=== PATIENT | female | born 1950 ===

== ENCOUNTER 2016-10-31 10:23 | Day surgery (SDC) | payer MEDICARE, MEDICAID ==
[2016-10-31 10:53] VITALS: RESP 18
[2016-10-31 10:54] VITALS: BMI 31.6
[2016-10-31] MEDS ORDERED: MethylPREDNISolone Depo 40 mg/ml Inj ONE (11:29)
[2016-10-31] MEDS ORDERED: Iohexol 300 10 ML ONE (11:30)
[2016-10-31] MEDS ORDERED: Bupivacaine HCl 0.5% PF (10 ml) Inj ONE ×2 (11:30→11:44)
[2016-10-31] MEDS ORDERED: Lidocaine 1% Inj (20ml) ONE ×2 (11:30→11:56)
[2016-10-31] MEDS ORDERED: Midazolam 2 MG/2 ML VIAL ONE ×2 (11:39→11:48)
[2016-10-31] MEDS ORDERED: Lactated Ringer's 1,000 ML IV ONE (11:45)
[2016-10-31] MEDS ORDERED: Esmolol 100 mg/10ml Inj IV ONE (12:10)
[2016-10-31] MEDS ORDERED: Lactated Ringer's 1,000 ML IV SCH (12:18)
[2016-10-31 13:08] VITALS: O2SAT 98
[2016-10-31 14:05] VITALS: BP 132/76; PULSE 76; TEMP 97.2
--- NOTE | 2016-10-31 14:06 | OP ---
PROCEDURE DATE: 10/31/2016 PREOPERATIVE DIAGNOSIS: Sacroiliitis. POSTOPERATIVE DIAGNOSIS: Sacroiliitis. PROCEDURE: Bilateral sacroiliac joint steroid injection and also right sacral nerve radiofrequency x 3. ANESTHESIOLOGIST: Dr. Gómez. SURGEON: Dr. Balbuena. ANESTHESIA TYPE: Monitored anesthesia care. COMPLICATIONS: None. SPECIMEN: None. PROCEDURE: After re-discussion of the procedure with the patient including its risks, benefits, alte rnatives, outcome data, possibility of no effect or increased pain, the patient consented to the proc edure. She denies any recent infections, bleeding tendencies, or being on anticoagulants. Decision was then made to proceed to the OR. The patient had stopped Plavix exactly 1 week prior to today. The patient was placed on the fluoroscopy table in a prone position with 2 pillows underneath her abd omen. The patient was then grounded. The sacroiliac joints were then visualized on the anterior-pos terior view. Her lower back was then prepped and draped in a usual sterile fashion and sterile techn ique was adhered to during the entire procedure. The skin overlying the inferior pole of both sacroi liac joints was infiltrated with 1% lidocaine using a 25 gauge needle. Subsequently, a 22 gauge 3-1/ 2 inch spinal needle was then incrementally advanced under fluoroscopic guidance until tip of the nee dle walked into the sacroiliac joints. After satisfactory positioning of both needles, approximately 1 mL of Isovue contrast was injected showing appropriate spread of the bilateral joint lines. At th is point, each needle was injected with 2 mL of 0.5% Marcaine and Depo-Medrol. Then, the skin overlying the medial border of the right sacroiliac joint was then infiltrated with 1% lidocaine using a 25-gauge needle. Then three 22 gauge 3-1/2 inch Stimuplex needle was then inserte d at approximately 5 mm intervals from the inferior pole on the medial side of the medial sacroiliac joint line. Using a tunnel view on the fluoroscopy, all 3 needles were then inserted until bony cont act with desired location was made. Then each nerve was anesthetized with 1% lidocaine. Radiofreque ncy was then carried out at 80 degrees Celsius for approximately 1-1/2 minutes. At the end of the ra diofrequency procedure, each nerve was treated with a combination of 0.5% Marcaine and Depo-Medrol. At the end of the procedure, the needle was removed and patient's back was clean and dry and Band-Aid s were applied. The patient was then transferred to recovery area in good condition without any signs of TARIFF PUBLISHING AGENT toxicity or any neurological deficits. She will have a followup in office in approximately 2-4 weeks. En-Joshua Balbuena MD cc: [id number] TT: 10/31/2016 14:05:39 mn
--- NOTE | 2016-10-31 15:00 | RAD ---
PROCEDURE: Sacral Epidural Injection HISTORY: EPIDURAL TECHNIQUE: Fluoroscopic guidance was provided for epidural injection for pain management purposes. FINDINGS: IMPRESSION: Fluoroscopic guidance provided for epidural injection. Please refer procedure.
== END 2016-10-31 14:06 | disposition home or self-care (01) ==
LOC: H.OPSURG 10:23
PROVIDERS: ATTEND Anesthesiology
DX: M96.1 Postlaminectomy syndrome, not elsewhere classified (principal); I25.10 Atherosclerotic heart disease of native coronary artery without angina pectoris; E11.9 Type 2 diabetes mellitus without complications; I10 Essential (primary) hypertension; G40.909 Epilepsy, unspecified, not intractable, without status epilepticus; Z86.73 Personal history of transient ischemic attack (TIA), and cerebral infarction without residual deficits
CPT/HCPCS: 27096; 64635; 64636; 82948; J1030; J2250; J3010; J7120; Q9967

== ENCOUNTER 2016-12-26 09:41 | Day surgery (SDC) | payer MEDICARE, MEDICAID ==
[2016-12-26 10:11] VITALS: BMI 31.1
[2016-12-26] MEDS ORDERED: Lactated Ringer's 1,000 ML IV ONE (10:38)
[2016-12-26] MEDS ORDERED: Bupivacaine 0.5% 50 ML IJ ONE (10:45)
[2016-12-26] MEDS ORDERED: methylPREDNISolone Depo 80 mg/ml Inj IM ONE (10:46)
[2016-12-26] MEDS ORDERED: Lidocaine 1% Inj (20ml) IJ ONE (10:46)
[2016-12-26] MEDS ORDERED: Lactated Ringer's 1,000 ML IV SCH (11:01)
[2016-12-26] MEDS ORDERED: HYDROmorphone 0.5 mg/0.5 ml ISec IVP PRN (11:01)
[2016-12-26 11:18] VITALS: RESP 18
[2016-12-26 12:32] VITALS: BP 127/71; PULSE 81; TEMP 97.6; O2SAT 97
--- NOTE | 2016-12-26 13:30 | RAD ---
PROCEDURE: HISTORY: Study for pain management. Please refer to physician's notes performing the exam COMPARISON: None TECHNIQUE: Total fluoroscopic time utilized during the procedure: 33.8 sec 16.11 mGy = cumulative dose FINDINGS: Submitted images from the current procedure: 2 IMPRESSION: Less than 1 hour fluoroscopic time utilized during performance of the procedure
--- NOTE | 2016-12-26 16:41 | OP ---
PROCEDURE DATE: 12/26/2016 PREOPERATIVE DIAGNOSIS: Lumbar facet syndrome. POSTOPERATIVE DIAGNOSIS: Lumbar facet syndrome. PROCEDURE: Bilateral L3, L4, and L5 medial branch nerve block. ANESTHESIOLOGIST: Yariel Bejarano MD SURGEON: Luiz Balbuena MD ANESTHESIA TYPE: Monitored anesthesia care. COMPLICATIONS: None. SPECIMEN: None. PROCEDURE: After re-discussion of the procedure with the patient, including its risks, benefits, alt ernatives, outcome data, possibility of no effect, or increased pain, the patient consented to the pr ocedure. She denies any recent infections, bleeding tendencies, or being on anticoagulants. Decisio n was then made to proceed to the OR. The patient last had Plavix on 12/18, and has not taken that s aylin that time. This decision was cleared by her neurologist and roofing layer. The patient was then transferred into the OR onto the fluoroscopy table in a prone position with 2 pi llows underneath her abdomen. The back was prepped and draped in a usual sterile fashion and sterile technique was adhered to during the entire procedure. The L3, L4, and L5 medial branch nerves are l ocated at the intersection of the superior articular process and the transverse process of the L4 and L5 pedicles; also, the sacral ala. The procedure was first performed on the right side by turning t he fluoroscopy towards the right at approximately 15 degrees. The skin overlying the 3 above target areas was infiltrated with 1% lidocaine using a 25-gauge needle. Subsequently, a 22-gauge 3-1/2 inch spinal needle was then incrementally advanced under fluoroscopic guidance until the tip of needle ma de bony contact with all 3 target areas. After satisfactory positioning of all 3 needles, approximat clinton 3 mL of a 0.5% Marcaine and Depo-Medrol mixture was injected. Then, the needle was then removed and the same exact procedure was performed on the contralateral left side using the same medications and techniques. At the end of the case, the patient's back was cleaned and dried and Band-Aids were applied. The patient was then transferred to recovery area in good condition without any signs of VP [employer] MARKETING toxicity or any neurological deficits. She will follow up in office in approximately 2-4 weeks. She may res ume Plavix tomorrow. En-Joshua Balbuena MD cc: [id number] TT: 12/26/2016 16:40:42 dn
== END 2016-12-26 13:00 | disposition home or self-care (01) ==
LOC: H.OPSURG 09:41
PROVIDERS: ATTEND Anesthesiology
DX: M96.1 Postlaminectomy syndrome, not elsewhere classified (principal); E11.9 Type 2 diabetes mellitus without complications; I10 Essential (primary) hypertension
CPT/HCPCS: 64520; 82948; J1040; J7120

== ENCOUNTER 2017-02-27 06:04 | Day surgery (SDC) | payer MEDICARE, MEDICAID ==
[2017-02-27 06:20] VITALS: BMI 34.3
[2017-02-27] MEDS ORDERED: Lactated Ringer's 1,000 ML IV ONE (06:49)
[2017-02-27] MEDS ORDERED: Propofol 10 mg/ml Inj (20 ML) ONE (07:17)
[2017-02-27] MEDS ORDERED: Midazolam 2 MG/2 ML VIAL ONE ×3 (07:17→07:59)
[2017-02-27] MEDS ORDERED: Iohexol 300 10 ML ONE (07:25)
[2017-02-27] MEDS ORDERED: MethylPREDNISolone Depo 40 mg/ml Inj ONE (07:25)
[2017-02-27] MEDS ORDERED: Bupivacaine HCl 0.5% PF (10 ml) Inj ONE (07:25)
[2017-02-27] MEDS ORDERED: Lidocaine 1% Inj (20ml) ONE (07:26)
[2017-02-27] MEDS ORDERED: oxyCODONE 10 mg Immediate Release Tab PO PRN (08:27)
[2017-02-27 09:11] VITALS: RESP 20
[2017-02-27 09:23] VITALS: BP 120/50; PULSE 85; TEMP 98.2; O2SAT 98
--- NOTE | 2017-02-27 20:37 | OP ---
PROCEDURE DATE: 02/27/2017 PREOPERATIVE DIAGNOSIS: Failed back syndrome. POSTOPERATIVE DIAGNOSIS: Failed back syndrome. PROCEDURE: Bilateral L3-L4 medial branch nerve radiofrequency. ANESTHESIOLOGIST: Dr. Schafer. SURGEON: Dr. Balbuena. ANESTHESIA: Monitored anesthesia care. COMPLICATIONS: None. SPECIMEN: None. PROCEDURE: After we had discussion of the procedure with the patient including its risks, benefits, alternative, outcome data, possibility of no effect or increased pain, the patient consented to the procedure. She denies any recent infections, bleeding tendencies or being on anticoagulants. Decision was then made to proceed to the OR. The patient was placed on the fluoroscopy table in a prone position with 2 pillows underneath her abdomen. The back was prepped and draped in the usual sterile fashion and sterile technique was adhered during the entire procedure. The L3 and L4 vertebrae levels were first identified in the anterior and posterior view. The medial branch nerves are located at the bilateral pedicles at the junction of the superior articular process and the transverse process. The needles were first placed on the right side by turning the fluoroscopy towards the right approximately 15 degrees. The skin overlying the targeted areas was infiltrated with 1% lidocaine using 25 gauge needle. Subsequently, a 22-gauge 3-1/2 inch needle was then incrementally advanced under fluoroscopic guidance until the tip of the needle made bony contact with both pedicles. Then, the procedure was repeated on the contralateral left side at the same levels. After appropriate placement of all 4 needles, sensory and motor testing was carried out to satisfactory results. The patient reported corresponding pain in the lower back without any muscle twitching in the legs during the stimulation. Then each layer was anesthetized with 1% lidocaine using 25 gauge needle. Subsequently, radiofrequency was carried out at 80 degrees Celsius for approximately 90 seconds. Then each layer was treated with a combination of 0.5% Marcaine and Depo-Medrol. At the end of the procedure, the needles were removed and the patient's back was cleaned and dried and bandage was applied. The patient was then transferred to recovery area in good condition without any signs of GAS APPLIANCE MECHANIC toxicity or any neurological deficit. She will have a followup in our office in approximately 2 to 4 weeks. En-Joshua Balbuena MD [facility] # [id number]
--- NOTE | 2017-02-28 11:29 | RAD ---
PROCEDURE: Intraoperative Fluoroscopy. HISTORY: PAIN FINDINGS: Fluoroscopic assistance was provided. Approximately at 20.7 seconds fluoroscopy time utilized during this procedure. Please refer to the
== END 2017-02-27 10:11 | disposition home or self-care (01) ==
LOC: H.OPSURG 06:04
PROVIDERS: ATTEND Anesthesiology
DX: M43.06 Spondylolysis, lumbar region (principal); E11.9 Type 2 diabetes mellitus without complications; I10 Essential (primary) hypertension; E66.09 Other obesity due to excess calories; F03.90 Unspecified dementia, unspecified severity, without behavioral disturbance, psychotic disturbance, mood disturbance, and anxiety
CPT/HCPCS: 64635; 82948; J1030; J2001; J2250; J2704; J3010; J7120

== ENCOUNTER 2017-05-24 09:44 | Day surgery (SDC) | payer MEDICARE, MEDICAID ==
[2017-05-24 10:07] VITALS: RESP 20
[2017-05-24] MEDS ORDERED: Bupivacaine HCl 0.5% PF (30 ml) Inj ONE (10:17)
[2017-05-24] MEDS ORDERED: MethylPREDNISolone Depo 40 mg/ml Inj ONE (10:17)
[2017-05-24] MEDS ORDERED: Lidocaine 1% Inj (20ml) ONE (10:17)
[2017-05-24] MEDS ORDERED: Midazolam 2 MG/2 ML VIAL ONE (10:31)
[2017-05-24] MEDS ORDERED: Lactated Ringer's 1,000 ML IV ONE (10:35)
[2017-05-24] MEDS ORDERED: Bupivacaine 0.5% Inj(30mL) IJ ONE (10:46)
[2017-05-24] MEDS ORDERED: HYDROmorphone 0.5 mg/0.5 ml ISec IVP PRN (11:21)
[2017-05-24] MEDS ORDERED: Lactated Ringer's 1,000 ML IV SCH (11:30)
[2017-05-24 12:11] VITALS: BP 135/65; PULSE 82; TEMP 98.1
[2017-05-24 12:12] VITALS: O2SAT 99
--- NOTE | 2017-05-25 02:10 | OP ---
PROCEDURE DATE: 05/24/2017 PREOPERATIVE DIAGNOSIS: Bilateral sacroiliitis. POSTOPERATIVE DIAGNOSIS: Bilateral sacroiliitis. PROCEDURE: Left sacroiliac joint nerve radiofrequency and also right sacroiliac joint steroid injection. ANESTHESIOLOGIST: Spenser Schultz MD SURGEON: Luiz Balbuena MD TYPE OF ANESTHESIA: Monitored anesthesia care. COMPLICATIONS: None. SPECIMEN: None. DESCRIPTION OF PROCEDURE: As follows: After we had discussion of the procedure with the patient including its risks, benefits, alternatives, outcome data, possibility of no effect or increased pain, patient consented to the procedure. She denies any recent infection, bleeding tendencies, or being on anticoagulants. A decision was then made to proceed to the OR. She has stopped the Plavix approximately 1 week ago. The patient was placed on a fluoroscopy table in a prone position with 2 pillows underneath her abdomen. The back was prepped and draped in the usual sterile fashion, and sterile technique was adhered to during the entire procedure. The sacroiliac joint on left was first visualized in the anterior-posterior view. The target are an imaginary line along the medial border of the posterior opening to the left sacroiliac joint. The skin overlying this areas was infiltrated with 1% lidocaine using a 25-gauge needle. Subsequently, 6 Stimuplex needle was then placed along this imaginary line, starting from the inferior pole up to the top of the sacroiliac joint. The needles were placed at approximately 1 cm apart. Then after a negative motor stimulation, each nerve was anesthetized with 1% lidocaine. Then, bipolar radiofrequency was carried out between each of the 2 needles at 90 degree Celsius for approximately 2 minutes. This was repeated at each pair of needles from #1 to #6. At the end of the radiofrequency procedure, each nerve was treated with a combination of 0.5% Marcaine and Depo-Medrol. Then the right sacroiliac joint was visualized in the anterior-posterior view. A slight oblique angle towards the left at approximately 15 degrees was used to maximize the visualization to the posterior opening of the right sacroiliac joint. The skin overlying the inferior pole of this area was infiltrated with 1% lidocaine using 25-gauge needle. Subsequently, a 22-gauge 3-1/2 inch spinal needle was then incrementally advanced under fluoroscopic guidance until the tip of needle walked into the joint capsule. After satisfactory positioning of the needle, approximately 3 mL of 0.5% Marcaine and Depo-Medrol mixture was injected. At the end of the case, the patient's back was cleaned and dry bandages were applied. The patient was then transferred to the recovery area in good condition without any signs of BILLING DEPARTMENT SUPERVISOR toxicity or any neurovascular deficit. She will have a followup in the office in approximately 2 to 4 weeks. En-Joshua Balbuena MD
== END 2017-05-24 12:56 | disposition home or self-care (01) ==
LOC: H.OPSURG 09:44
PROVIDERS: ATTEND Anesthesiology
DX: M46.1 Sacroiliitis, not elsewhere classified (principal)
CPT/HCPCS: 27096; 82948; J1030; J2250; J3010; J7120

== ENCOUNTER 2017-09-18 09:36 | Day surgery (SDC) | payer MEDICARE, MEDICAID ==
[2017-09-18 10:16] VITALS: BMI 36.0
[2017-09-18] MEDS ORDERED: Midazolam 2 MG/2 ML VIAL ONE (10:16)
[2017-09-18] MEDS ORDERED: Bupivacaine HCl 0.5% PF (10 ml) Inj ONE (10:36)
[2017-09-18] MEDS ORDERED: methylPREDNISolone Depo 80 mg/ml Inj ONE (10:36)
[2017-09-18] MEDS ORDERED: Lidocaine 1% Inj (20ml) ONE (10:36)
[2017-09-18] MEDS ORDERED: Lactated Ringer's 500 ML IV ONE (10:45)
[2017-09-18 12:09] VITALS: PULSE 80
[2017-09-18 12:30] VITALS: BP 137/62; RESP 18; TEMP 97.4
[2017-09-18 12:32] VITALS: O2SAT 98
--- NOTE | 2017-09-18 16:24 | OP ---
PROCEDURE DATE: 09/18/2017 PREOPERATIVE DIAGNOSIS: Failed back syndrome. POSTOPERATIVE DIAGNOSIS: Failed back syndrome. PROCEDURE: Bilateral L3 and L4 medial branch nerve radiofrequency. SURGEON: Luiz Balbuena MD TYPE OF ANESTHESIA: Monitored anesthesia care. ANESTHESIOLOGIST: . COMPLICATIONS: None. SPECIMEN: None. DESCRIPTION OF PROCEDURE: As follows. After we had discussion of the procedure with the patient including its risks, benefits, alternative, outcome data, possibility of no effect or increased pain, the patient consented to the procedure. She denies any recent infection, bleeding tendencies or being on anticoagulants, a decision was then made to proceed to the OR. The patient is routinely on Plavix, but that was stopped approximately 1 week ago. The patient was transferring to the OR and to the fluoroscopy table in a prone position. She was grounded for the purpose of radiofrequency. The patient had a previous surgery of L5 to S1 fusion, the procedure was done at the level of the L3 and L4 vertebrae. The procedure was first performed on the right side by turning the fluoroscopy towards the right at approximately 15 degrees. The skin overlying the right L3 and L4 pedicles was infiltrated with 1% lidocaine using a 25 gauge needle. Subsequently, a 22-gauge 3-1/2 inch Stimuplex needle was incrementally advanced under fluoroscopic guidance until tip of needle made bony contact with the targeted areas. After satisfactory positioning of both needles, sensory and motor testing was carried out to satisfactory results. Then each nerve was anesthetized with 1% lidocaine. Subsequently, a radiofrequency was carried out at 80 degree Celsius for approximately 1-1/2 minutes. At the end of the procedure, each nerve was treated with a combination of 0.5% Marcaine and Depo-Medrol. At the end of the case, the needle was removed and the same exact procedure was performed on the contralateral left side using the same medications and techniques. At the end of the case, the patient's back was cleaned and dried, and bandages were applied. The patient was then transferred to recovery area in good condition without any signs of FAN BALANCER toxicity or any neurological deficit. She will be following in our office in approximately 2 to 4 weeks. Luiz Balbuena MD [facility] # [id number]
--- NOTE | 2017-09-19 09:17 | RAD ---
PROCEDURE: Intraoperative Fluoroscopy. HISTORY: EPIDURAL FINDINGS: Fluoroscopic assistance was provided for lumbar epidural procedure. Please refer to the operative report from SEKOU Story. 61.5 seconds of fluoroscopy time was utilized with a cumulative radiation dose of 25.94 mGy.
== END 2017-09-18 13:00 | disposition home or self-care (01) ==
LOC: H.OPSURG 09:36
PROVIDERS: ATTEND Anesthesiology
DX: M96.1 Postlaminectomy syndrome, not elsewhere classified (principal); M54.5 Low back pain; E11.9 Type 2 diabetes mellitus without complications
CPT/HCPCS: 64635; 64636; 82948; J1040; J2250; J3010; J7120

== ENCOUNTER 2017-10-15 13:59 | Observation (INO) | payer MEDICARE, MEDICAID ==
[2017-10-15 13:59] VITALS: BMI 36.0
[2017-10-15 15:41] LABS: BASO % 0.2 % (0.0-2.0); EOS # 0.1 K/uL (0.0-0.7); EOS % 0.6 % (0.0-4.0); HEMOGLOBIN 9.7 g/dL (12.0-16.0); LYMPH # 3.8 K/uL (1.0-4.3); LYMPH % 32.4 % (20.0-40.0); MEAN CORPUSCULAR HEMOGLOBIN 30.5 pg (27.0-31.0); MEAN CORPUSCULAR HGB CONC 32.4 g/dL (33.0-37.0); MEAN PLATELET VOLUME 10.9 fl (7.2-11.7); MONO # 0.7 K/uL (0.0-0.8); MONO % 6.3 % (0.0-10.0); NEUT # 7.1 K/uL (1.8-7.0); NEUT % 60.5 % (50.0-75.0); NRBC % 0.1 % (0.0-0.0); RBC 3.18 Mil/uL (3.80-5.20); RED CELL DISTRIBUTION WIDTH 15.5 % (11.5-14.5); WHITE BLOOD COUNT 11.7 K/uL (4.8-10.8)
[2017-10-15 15:59] LABS: MEAN CELL VOLUME 94.1 fl (81.0-99.0)
--- NOTE | 2017-10-15 16:10 | RAD ---
PROCEDURE: CHEST RADIOGRAPH, 1 VIEW HISTORY: chest pain COMPARISON: Frontal chest 09/13/2016. FINDINGS: LUNGS: No acute pulmonary disease identified bilaterally. PLEURA: No pneumothorax or pleural fluid seen. CARDIOVASCULAR: Normal. OSSEOUS STRUCTURES: No significant abnormalities. VISUALIZED UPPER ABDOMEN: Normal. OTHER FINDINGS: None. IMPRESSION: No interval acute cardiopulmonary disease appreciated.
[2017-10-15 16:19] LABS: CALCIUM 9.6 mg/dL (8.4-10.2); GFR AFRICAN-AMERICAN > 60; GFR NON-AFRICAN AMERICAN > 60
[2017-10-15 16:21] LABS: BLOOD UREA NITROGEN 21 mg/dl (7-17)
--- NOTE | 2017-10-15 16:22 | ED PDOC ---
HPI: Chest Pain Time Seen by Provider: 10/15/17 14:24 Chief Complaint (Nursing): Chest Pain Chief Complaint (Provider): Chest Pain History Per: Patient History/Exam Limitations: no limitations Onset/Duration Of Symptoms: Days (x 1) Current Symptoms Are (Timing): Still Present Associated Symptoms: Dyspnea Additional Complaint(s): 66 year old female with a past medical history of hypertension, dementia, chronic shoulder pain, arthritis, and coronary artery disease, who presents to the ED with complaints of left sided chest pain associated with difficulty breathing and left shoulder shoulder pain, onset one day ago. Denies fever, cough, leg swelling, dizziness, and palpitations. PMD: Pedro Hollins Past Medical History Reviewed: Historical Data, Nursing Documentation, Vital Signs Vital Signs: Last Vital Signs Temp 98.1 F 10/16/17 16:37 Pulse 79 10/16/17 16:37 Resp 20 10/16/17 16:37 BP 100/66 10/16/17 16:37 Pulse Ox 99 10/16/17 20:10 - Medical History PMH: Arthritis, Back Problems, CAD, CVA, Dementia, Diabetes, HTN, Hypercholesterolemia, Osteoporosis, Seizures (LAST ATTACK-20 YEARS AGO), TIA Denies: Alzheimer's Disease, Atrial Fibrillation, Cardia Arrhythmia, CHF, Colonic Polyps, Crohn's Disease, Diverticulitis, Fibromyalgia, Fractures, Gastritis, Gall Bladder Disease, HIV, Hyperthyroidism, Hypothyroidism, Migraine , Mitral Valve Prolapse, Multiple Sclerosis, Pancreatitis, Parkinson's Disease, Peripheral Edema, Chronic Kidney Disease, Rheumatoid Arthritis - Surgical History Surgical History: Back Surgery - Family History Family History: States: Unknown Family Hx - Home Medications Home Medications: Ambulatory Orders Medication Instructions Recorded Atorvastatin [Lipitor] 40 mg PO HS 09/18/17 Clopidogrel [Plavix] 75 mg PO DAILY 09/18/17 Diclofenac Sodium [Voltaren] 1 appl TOP Q12 PRN 09/18/17 Lidocaine [Lidocare] 1 patch TD DAILY 09/18/17 Liraglutide [Victoza 2-Eliud] 1.8 mg SC HS 09/18/17 Memantine HCl [Namenda Xr] 28 mg PO DAILY 09/18/17 Pioglitazone HCl/Metformin HCl 1 tab PO BID 09/18/17 [Pioglitazone-Metformin 15-850] Pregabalin [Lyrica] 100 mg PO Q12 09/18/17 Rivastigmine [Exelon] 3 mg PO Q12 09/18/17 Travoprost [Travatan Z 2.5 ml] 1 drop BOTHEYES HS 09/18/17 Valsartan/Hydrochlorothiazide 1 tab PO DAILY 09/18/17 [Diovan Hct 320-25 mg Tablet] amLODIPine [Norvasc] 5 mg PO DAILY 09/18/17 carBAMazepine [TEGretol-XR] 100 mg PO DAILY 09/18/17 Temazepam [Restoril] 30 mg PO HS 10/15/17 oxyCODONE [oxyCODONE Immediate 30 mg PO Q6 PRN 10/15/17 Release Tab] - Allergies Allergies/Adverse Reactions: Allergies Allergy/AdvReac Type Severity Reaction Status Date / Time aspirin AdvReac NAUSEA Verified 09/18/17 10:15 paper tape Allergy RASH Uncoded 09/18/17 10:15 RAJESH Risk Score for UA/NSTEMI - RAJESH Risk Score Age > 64: YES 3 or more CAD Risk Factors: YES Known CAD (Stenosis greater than 50%): YES Aspirin use in past 7 days: NO Severe Angina: NO EKG ST changes greater than 0.5mm: NO Positive Cardiac Marker: NO RAJESH Score: 3 Risk %: 13% Review of Systems ROS Statement: Except As Marked, All Systems Reviewed And Found Negative Cardiovascular: Positive for: Chest Pain (left sidded ) Respiratory: Positive for: Other (Dyspnea) Musculoskeletal: Positive for: Shoulder Pain (let shoulder) Physical Exam - Reviewed Nursing Documentation Reviewed: Yes Vital Signs Reviewed: Yes - Physical Exam Appears: Positive for: Non-toxic, No Acute Distress Head Exam: Positive for: ATRAUMATIC, NORMAL INSPECTION, NORMOCEPHALIC Skin: Positive for: Normal Color, Warm, Dry Eye Exam: Positive for: EOMI, Normal appearance, PERRL Neck: Positive for: Normal, Painless ROM, Supple Cardiovascular/Chest: Positive for: Regular Rate, Rhythm. Negative for: Murmur Respiratory: Positive for: Normal Breath Sounds. Negative for: Respiratory Distress Gastrointestinal/Abdominal: Positive for: Normal Exam, Soft. Negative for: Tenderness Back: Positive for: Normal Inspection. Negative for: L CVA Tenderness, R CVA Tenderness, Vertebral Tenderness Extremity: Positive for: Normal ROM. Negative for: Pedal Edema, Deformity Neurologic/Psych: Positive for: Alert, Oriented (x3) - Laboratory Results Result Diagrams: 10/15/17 15:34 10/15/17 15:34 - ECG ECG: Positive for: Interpreted By Me, Viewed By Me ECG Rhythm: Positive for: Normal QRS, Normal ST Segment O2 Sat by Pulse Oximetry: 99 (RA) Pulse Ox Interpretation: Normal Medical Decision Making Medical Decision Making: Time: 1509 Initial Impression: Chest Pain and Shoulder Pain Differentials include ACS, musculoskeletal pain Plan: -- EKG -- Chest XR -- Farm Operations Technical Director Time:1534 Plan: -- B-Type Natriuretic -- BMP -- Troponin -- CBC Time: 1608 Chest X-Ray FINDINGS: LUNGS: No acute pulmonary disease identified bilaterally. PLEURA: No pneumothorax or pleural fluid seen. CARDIOVASCULAR: Normal. OSSEOUS STRUCTURES: No significant abnormalities. VISUALIZED UPPER ABDOMEN: Normal. OTHER FINDINGS: None. IMPRESSION: No interval acute cardiopulmonary disease appreciated. Time: [address] Fernandez. Patient will be admitted to observation and diagnosed with chest pain. Patient has an allergy to Asprin and will not be given Asprin. Scribe Attestation: Documented by Omar Qiu, acting as a scribe for Dr. Abraham Peres MD. Provider Scribe Attestation: All medical record entries made by the Scribe were at my direction and personally dictated by me. I have reviewed the chart and agree that the record accurately reflects my personal performance of the history, physical exam, medical decision making, and the department course for this patient. I have also personally directed, reviewed, and agree with the discharge instructions and disposition. Disposition - Clinical Impression Clinical Impression: Chest pain - Patient ED Disposition Is Patient to be Admitted: Yes Discussed With DrViktoria: Enoc Fernandez Doctor Will See Patient In The: Hospital Counseled Patient/Family Regarding: Studies Performed, Diagnosis - Disposition Disposition Time: 16:55 Condition: FAIR - Pt Status Changed To: Hospital Disposition Of: Observation - POA Present On Arrival: None
[2017-10-15 16:27] LABS: B-TYPE NATRIURETIC PEPTIDE 96.3 pg/ml (0-900)
[2017-10-15] MEDS ORDERED: Patient's Own Med (Diclofenac Sodium [Voltaren] 1 APPL) TOP PRN (22:28)
[2017-10-15] MEDS ORDERED: LIDOCAINE TD SCH (22:30)
[2017-10-15] MEDS ORDERED: PIOGLITAZONE HCL PO SCH (22:30)
[2017-10-15] MEDS ORDERED: Patient's Own Med (Travoprost [Travatan Z] 1 DROP) BOTHEYES SCH (22:30)
[2017-10-15] MEDS ORDERED: METFORMIN HCL PO SCH (22:30)
[2017-10-15] MEDS ORDERED: [UNRECOGNIZED DRUG - OTHER] PO SCH (22:30)
[2017-10-15] MEDS: Lidocaine 5% Patch TD SCH (23:51)
[2017-10-16] MEDS: Enoxaparin 40 mg Syringe SC SCH (08:52)
[2017-10-16] MEDS ORDERED: Patient's Own Med (Memantine Hcl [Namenda Xr] 28 MG) PO SCH (09:00)
[2017-10-16] MEDS ORDERED: Patient's Own Med (Valsartan/Hydrochlorothiazide [Diovan Hct 320-25 Mg Tablet] 1 TAB) PO SCH (09:00)
[2017-10-16] MEDS: oxyCODONE 10 mg Immediate Release Tab PO PRN ×2 (09:06→16:32)
--- NOTE | 2017-10-16 09:19 | CARD ---
APPROVED REPORT EKG Measurement Heart [id number] <Conclusion> Normal sinus rhythm Normal ECG
--- NOTE | 2017-10-16 09:30 | CP.PCM.HP ---
<Ankit Fong - Last Filed: 10/16/17 13:48> History of Present Illness - History of Present Illness History of Present Illness: CC: chest pain HPI: 66 y/o woman w/ pmh of HTN, NIDDM2, dementia, chronic shoulder pain, arthritis, and coronary artery disease, presents to the ED with complaints chest pain. Patient reports left sided chest pain, starting 1-2 days ago, pressure-like in nature, constant, and radiating to left shoulder. Patient reported associated dyspnea. Patient reported similar event 4-5 days prior to current chest pain that resolved. Patient reports past nuclear stress test 5 years ago. Patient denies fever, cough, headaches, abdominal pain, nausea, vomiting, leg swelling, dizziness, and palpitations. PMD: Pedro Hollins still runner: Dr. Edwards PMH: HTN, CAD, NIDDM2, dementia, chronic shoulder pain, arthritis meds: see med list Allergies: aspirin PSH: bilateral shoulder rotator cuff repair, left total knee replacement, right knee arthroscopy, left wrist carpal tunnel release FAM: non-contributory SOC: denies smoking, alcohol, and drugs ROS: 12 points assessed and negative unless otherwise reported in HPI Present on Admission - Present on Admission Any Indicators Present on Admission: No History of DVT/PE: No History of Uncontrolled Diabetes: No Urinary Catheter: No Decubitus Ulcer Present: No Review of Systems - Review of Systems All systems: reviewed and no additional remarkable complaints except - Constitutional Constitutional: absent: Chills, Headache - EENT Eyes: absent: Change in Vision - Cardiovascular Cardiovascular: As Per HPI, Chest Pain. absent: Leg Edema, Palpitations - Respiratory Respiratory: As Per HPI, Dyspnea. absent: Cough - Gastrointestinal Gastrointestinal: absent: Abdominal Pain, Diarrhea, Nausea, Vomiting - Genitourinary Genitourinary: absent: Dysuria - Integumentary Integumentary: absent: Rash Past Patient History - Infectious Disease Hx of Infectious Diseases: None - Past Medical History & Family History Past Medical History?: Yes - Past Social History Smoking Status: Never Smoked - CARDIAC Hx Cardiac Disorders: Yes Hx Atrial Fibrillation: No Hx Cardia Arrhythmia: No Hx Congestive Heart Failure: No Hx Heart Attack: Yes Hx Hypercholesterolemia: Yes Hx Hypertension: Yes Hx Mitral Valve Prolapse: No Hx Peripheral Edema: No - PULMONARY Hx Respiratory Disorders: No - NEUROLOGICAL Hx Neurological Disorder: Yes Hx Alzheimer's Disease: No Hx Dementia: Yes Hx Migraine: No Hx Multiple Sclerosis: No Hx Parkinson's Disease: No Hx Seizures: Yes (LAST ATTACK-20 YEARS AGO) Hx Transient Ischemic Attacks (TIA): Yes - HEENT Hx HEENT Problems: Yes Hx Blind: No Hx Cataracts: Yes (BILATERAL) Hx Deafness: No Hx Difficulty Chewing: No Hx Epistaxis: No Hx Glaucoma: Yes (BILATERAL) Hx Macular Degeneration: No - RENAL Hx Chronic Kidney Disease: No - ENDOCRINE/METABOLIC Hx Endocrine Disorders: Yes Hx Diabetes Mellitus Type 2: Yes Hx Hyperthyroidism: No Hx Hypothyroidism: No - HEMATOLOGICAL/ONCOLOGICAL Hx Blood Disorders: No Hx AIDS: No Hx Human Immunodeficiency Virus (HIV): No - INTEGUMENTARY Hx Dermatological Problems: No - MUSCULOSKELETAL/RHEUMATOLOGICAL Hx Musculoskeletal Disorders: Yes Hx Arthritis: Yes Hx Falls: No Hx Osteoporosis: Yes Other/Comment: Chronic shoulder pain - GASTROINTESTINAL Hx Gastrointestinal Disorders: No Hx Crohn's Disease: No Hx Diverticulitis: No Hx Gall Bladder Disease: No Hx Gastritis: No Hx Pancreatitis: No - GENITOURINARY/GYNECOLOGICAL Hx Genitourinary Disorders: No - PSYCHIATRIC Hx Psychophysiologic Disorder: No Hx Substance Use: No - SURGICAL HISTORY Hx Surgeries: Yes Hx Hysterectomy: Yes Hx Joint Replacement: Yes (Left total knee) Other/Comment: Bilateral shoulder sx - ANESTHESIA Hx Anesthesia: Yes Hx Anesthesia Reactions: No Hx Malignant Hyperthermia: No Meds Allergies/Adverse Reactions: Allergies Allergy/AdvReac Type Severity Reaction Status Date / Time aspirin AdvReac NAUSEA Verified 09/18/17 10:15 paper tape Allergy RASH Uncoded 09/18/17 10:15 Physical Exam - Constitutional Appears: Non-toxic, No Acute Distress - Head Exam Head Exam: ATRAUMATIC, NORMAL INSPECTION, NORMOCEPHALIC - Eye Exam Eye Exam: Normal appearance - ENT Exam ENT Exam: Mucous Membranes Moist - Neck Exam Neck exam: Positive for: Full Rom. Negative for: Tenderness - Respiratory Exam Respiratory Exam: Clear to Auscultation Bilateral. absent: Accessory Muscle Use , Decreased Breath Sounds, Rales, Rhonchi, Wheezes, Respiratory Distress - Cardiovascular Exam Cardiovascular Exam: REGULAR RHYTHM. absent: Tachycardia - GI/Abdominal Exam GI & Abdominal Exam: Normal Bowel Sounds, Soft. absent: Distended, Tenderness - Extremities Exam Extremities exam: Negative for: calf tenderness, pedal edema, tenderness - Neurological Exam Neurological exam: Alert, Oriented x3 - Skin Skin Exam: Dry, Intact, Normal Color, Warm Results - Vital Signs Recent Vital Signs: Last Vital Signs Temp 98.3 F 10/16/17 07:39 Pulse 83 10/16/17 08:51 Resp 18 10/16/17 07:39 BP 120/72 10/16/17 08:51 Pulse Ox 98 10/16/17 07:39 - Labs Result Diagrams: 10/15/17 15:34 10/15/17 15:34 Labs: Laboratory Results - last 24 hr 10/15/17 10/15/17 10/15/17 15:34 15:34 21:08 WBC 11.7 H RBC 3.18 L Hgb 9.7 L Hct 29.9 L MCV 94.1 D MCH 30.5 MCHC 32.4 L RDW 15.5 H Plt Count 163 MPV 10.9 Neut % (Auto) 60.5 Lymph % (Auto) 32.4 [place] % (Auto) 6.3 Eos % (Auto) 0.6 Baso % (Auto) 0.2 Neut # (Auto) 7.1 H Lymph # (Auto) 3.8 [place] # (Auto) 0.7 Eos # (Auto) 0.1 Baso # (Auto) 0.0 Sodium 145 Potassium 4.9 Chloride 105 Carbon Dioxide 22 Anion Gap 23 H BUN 21 H Creatinine 0.6 L Est GFR ( Amer) > 60 Est GFR (Non-Af Amer) > 60 POC Glucose (mg/dL) 96 Random Glucose 97 Calcium 9.6 Troponin I < 0.0120 NT-Pro-B Natriuret Pep 96.3 10/15/17 10/16/17 10/16/17 23:00 04:25 04:59 WBC RBC Hgb Hct MCV MCH MCHC RDW Plt Count MPV Neut % (Auto) Lymph % (Auto) [place] % (Auto) Eos % (Auto) Baso % (Auto) Neut # (Auto) Lymph # (Auto) [place] # (Auto) Eos # (Auto) Baso # (Auto) Sodium Potassium Chloride Carbon Dioxide Anion Gap BUN Creatinine Est GFR ( Amer) Est GFR (Non-Af Amer) POC Glucose (mg/dL) 82 Random Glucose Calcium Troponin I < 0.0120 < 0.0120 NT-Pro-B Natriuret Pep Assessment & Plan (1) Chest pain Status: Acute Priority: Medium (2) Diabetes Status: Chronic (3) HTN (hypertension) Status: Chronic - Assessment and Plan (Free Text) Plan: c/w present management afebrile, non-tachycardic, normotensive chest pain relieved w/ nitroglycerin sublingual given in ED c/w home medications cardiology consult ordered CBC: 11.7>9.7/29.9<163 CMP: 145/4.9, 105/22, 20.6, glucose 97 pro-BNP 96.3 troponin <0.0120, negative x3 f/u ferritin, vitamin B12, folate f/u occult stool cardiac monitoring monitor for acute changes <Enoc Fernandez - Last Filed: 10/16/17 22:08> Results - Vital Signs Recent Vital Signs: Last Vital Signs Temp 98.3 F 10/16/17 20:41 Pulse 80 10/16/17 20:41 Resp 20 10/16/17 20:41 BP 106/69 10/16/17 20:41 Pulse Ox 98 10/16/17 20:41 - Labs Result Diagrams: 10/15/17 15:34 10/15/17 15:34 Labs: Laboratory Results - last 24 hr 10/15/17 10/16/17 10/16/17 23:00 04:25 04:59 POC Glucose (mg/dL) 82 Iron TIBC % Saturation Troponin I < 0.0120 < 0.0120 10/16/17 10/16/17 10/16/17 11:46 15:42 20:55 POC Glucose (mg/dL) 145 H 132 H Iron 42 TIBC 336 % Saturation 13 L Troponin I Assessment & Plan - Assessment and Plan (Free Text) Plan: I was present during evaluation and discussed with Dr Fong re plans of care and mgt. Enoc Fernandez M.D.
[2017-10-16 12:17] LABS: IRON 42 ug/dL (37-170)
[2017-10-16 12:28] LABS: % IRON SATURATION 13 % (20-55); TOTAL IRON BINDING CAPACITY 336 ug/dL (250-450)
[2017-10-16] MEDS: CYANOCOBALAMIN 500 MCG TAB PO SCH (12:35)
[2017-10-16] MEDS: Lidocaine 5% Patch TD SCH (21:31)
[2017-10-16] MEDS ORDERED: Latanoprost 0.005% Opht SOUTION OU SCH (22:00)
[2017-10-17 05:07] VITALS: RESP 18
[2017-10-17 07:39] LABS: FERRITIN 36.1 ng/Ml (11.1-264.0)
[2017-10-17 07:52] VITALS: TEMP 98.3; O2SAT 96
[2017-10-17] MEDS ORDERED: Metoprolol Succinate 25 mg XL Tab PO SCH (09:00)
[2017-10-17] MEDS: CYANOCOBALAMIN 500 MCG TAB PO SCH (09:30)
[2017-10-17] MEDS: Enoxaparin 40 mg Syringe SC SCH (09:30)
[2017-10-17 09:31] VITALS: BP 129/75; PULSE 77
--- NOTE | 2017-10-17 09:56 | CARD ---
APPROVED REPORT EXAM: Two-dimensional and M-mode echocardiogram with Doppler and color Doppler. Other Information Quality : GoodRhythm : NSR INDICATION Chest Pain 2D DIMENSIONS IVSd1.52 (0.7-1.1cm)LVDd4.26 (3.9-5.9cm) LVOT Diameter1.89 (1.8-2.4cm)PWd1.09 (0.7-1.1cm) IVSs1.68 (0.8-1.2cm)LVDs2.29 (2.5-4.0cm) FS (%) 46.3 %PWs1.41 (0.8-1.2cm) M-Mode DIMENSIONS Left Atrium (MM)3.79 (2.5-4.0cm)IVSd1.26 (0.7-1.1cm) Aortic Root3.03 (2.2-3.7cm)LVDd4.47 (4.0-5.6cm) Aortic Cusp Exc.2.06 (1.5-2.0cm)PWd1.12 (0.7-1.1cm) IVSs1.76 cmFS (%) 50 % LVDs2.24 (2.0-3.8cm)PWs1.50 cm Mitral Valve MV E Lxjsqelj54.5cm/sMV DECEL [id number] A Zwftxgzp74.0cm/s MV BHH01jhC/A ratio0.9MVA (PHT)2.98cm2 TDI Lateral E' Peak V7.82cm/sMedial E' Peak V6.60cm/sE/Lateral E'8.5 E/Medial E'10.1 Pulmonary Valve PV Peak Edmiqtlr817.1cm/s Tricuspid Valve TR Peak Fybsistt653vv/sRAP [id number] Peak Gr.20mmHg [id number] LEFT VENTRICLE The left ventricle is normal size. There is borderline concentric left ventricular hypertrophy. Left ventricle systolic function is normal. The Ejection Fraction is 65-70%. There is normal LV segmental wall motion. Transmitral Doppler flow pattern is Grade I-abnormal relaxation pattern. RIGHT VENTRICLE The right ventricle is normal size. There is normal right ventricular wall thickness. The right ventricular systolic function is normal. ATRIA The left atrium size is normal. The right atrium size is normal. AORTIC VALVE The aortic valve is normal in structure. No aortic regurgitation is present. There is no aortic valvular stenosis. MITRAL VALVE The mitral valve is normal in structure. There is no evidence of mitral valve prolapse. There is no mitral valve stenosis. There is no mitral valve regurgitation noted. TRICUSPID VALVE The tricuspid valve is normal in structure. There is trace to mild tricuspid regurgitation. Right ventricular systolic pressure is estimated at 31 mmHg. There is no pulmonary hypertension. PULMONIC VALVE The pulmonary valve is normal in structure. There is no pulmonic valvular regurgitation. GREAT VESSELS The aortic root is normal in size. The IVC is normal in size and collapses >50% with inspiration. PERICARDIAL EFFUSION The pericardium appears normal. <Conclusion> The left ventricle is normal size. There is borderline concentric left ventricular hypertrophy. There is normal LV segmental wall motion. Left ventricle systolic function is normal. The Ejection Fraction is 65-70%. Transmitral Doppler flow pattern is Grade I-abnormal relaxation pattern.
--- NOTE | 2017-10-17 12:49 | CP.PCM.DIS ---
Provider - Provider Date of Admission: 10/15/17 16:59 Attending physician: Enoc Fernandez MD Time Spent in preparation of Discharge (in minutes): 15 Diagnosis - Discharge Diagnosis (1) Chest pain Status: Resolved Priority: Medium (2) Diabetes Status: Chronic (3) HTN (hypertension) Status: Chronic Hospital Course - Lab Results Lab Results: Most Recent Lab Values WBC 11.7 K/uL (4.8-10.8) H 10/15/17 15:34 RBC 3.18 Mil/uL (3.80-5.20) L 10/15/17 15:34 Hgb 9.7 g/dL (12.0-16.0) L 10/15/17 15:34 Hct 29.9 % (34.0-47.0) L 10/15/17 15:34 MCV 94.1 fl (81.0-99.0) D 10/15/17 15:34 MCH 30.5 pg (27.0-31.0) 10/15/17 15:34 MCHC 32.4 g/dL (33.0-37.0) L 10/15/17 15:34 RDW 15.5 % (11.5-14.5) H 10/15/17 15:34 Plt Count 163 K/uL (130-400) 10/15/17 15:34 MPV 10.9 fl (7.2-11.7) 10/15/17 15:34 Neut % (Auto) 60.5 % (50.0-75.0) 10/15/17 15:34 Lymph % (Auto) 32.4 % (20.0-40.0) 10/15/17 15:34 [place] % (Auto) 6.3 % (0.0-10.0) 10/15/17 15:34 Eos % (Auto) 0.6 % (0.0-4.0) 10/15/17 15:34 Baso % (Auto) 0.2 % (0.0-2.0) 10/15/17 15:34 Neut # (Auto) 7.1 K/uL (1.8-7.0) H 10/15/17 15:34 Lymph # (Auto) 3.8 K/uL (1.0-4.3) 10/15/17 15:34 [place] # (Auto) 0.7 K/uL (0.0-0.8) 10/15/17 15:34 Eos # (Auto) 0.1 K/uL (0.0-0.7) 10/15/17 15:34 Baso # (Auto) 0.0 K/uL (0.0-0.2) 10/15/17 15:34 Sodium 145 mmol/l (132-148) 10/15/17 15:34 Potassium 4.9 MMOL/L (3.6-5.0) 10/15/17 15:34 Chloride 105 mmol/L (98-107) 10/15/17 15:34 Carbon Dioxide 22 mmol/L (22-30) 10/15/17 15:34 Anion Gap 23 (10-20) H 10/15/17 15:34 BUN 21 mg/dl (7-17) H 10/15/17 15:34 Creatinine 0.6 mg/dl (0.7-1.2) L 10/15/17 15:34 Est GFR ( Amer) > 60 10/15/17 15:34 Est GFR (Non-Af Amer) > 60 10/15/17 15:34 POC Glucose (mg/dL) 110 mg/dL (65-110) 10/17/17 10:58 Random Glucose 97 mg/dL (65-105) 10/15/17 15:34 Calcium 9.6 mg/dL (8.4-10.2) 10/15/17 15:34 Iron 42 ug/dL (37-170) 10/16/17 11:46 TIBC 336 ug/dL (250-450) 10/16/17 11:46 % Saturation 13 % (20-55) L 10/16/17 11:46 Ferritin 36.1 ng/Ml (11.1-264.0) 10/17/17 05:30 Troponin I < 0.0120 ng/mL (0.00-0.120) 10/16/17 04:25 NT-Pro-B Natriuret Pep 96.3 pg/ml (0-900) 10/15/17 15:34 Vitamin B12 285 pg/mL (239-931) 10/17/17 05:30 - Hospital Course Hospital Course: 66 y/o woman w/ pmh of HTN, NIDDM2, dementia, chronic shoulder pain, arthritis, and coronary artery disease, presents to the ED with complaints chest pain. Patient seen and evaluated in ED. Patient given sublingual nitro in ED which resolved chest pain. Patient admitted to rule out ACS. Patient mildly elevated BP 155/75 mm Hg. CBC showed anemia and mildly elevated WBC. CMP was WNL. Troponins were negative x3. Pro-BNP was 96.3. Patient's EKG and CXR were WNL. Echo showed EF 65-70%, LV systolic function, motion, and sized were WNL; there is borderline LV hypertrophy. Patient reports she is feeling better and denies headaches, chest pain, dizziness, SOB, abdominal pain, nausea, vomiting, diarrhea, dysuria, or fever. The patient has been seen, examined, and deemed medically fit for discharge home. The patient is to follow up w/ PMD in 1 week and ems manager in 1 week. The patient will be given updated medication list and prescriptions. Discharge Exam - Head Exam Head Exam: ATRAUMATIC, NORMAL INSPECTION, NORMOCEPHALIC - Eye Exam Eye Exam: Normal appearance - ENT Exam ENT Exam: Mucous Membranes Moist - Neck Exam Neck exam: Full Rom - Respiratory Exam Respiratory Exam: Clear to PA & Lateral. absent: Accessory Muscle Use, Decreased Breath Sounds, Rales, Rhonchi, Wheezes, Respiratory Distress - Cardiovascular Exam Cardiovascular Exam: REGULAR RHYTHM. absent: Tachycardia - GI/Abdominal Exam GI & Abdominal Exam: Normal Bowel Sounds, Soft. absent: Distended, Tenderness - Extremities Exam Extremities exam: normal inspection - Neurological Exam Neurological exam: Alert, Oriented x3 - Skin Skin Exam: Dry, Intact, Normal Color, Warm Discharge Plan - Discharge Medications Prescriptions: MetFORMIN [glucoPHAGE] 1,000 mg PO BIDWM #60 tab SITagliptin [Januvia] 100 mg PO DAILY #30 tab - Follow Up Plan Condition: FAIR Disposition: HOME/ ROUTINE Instructions: Chest Pain (DC) Additional Instructions: follow up with ems manager in 1 week. Referrals: Enoc Fernandez MD [Staff Provider] - Pedro Hollins MD [Medical Doctor] - Sidney Edwards MD [Staff Provider] -
== END 2017-10-17 13:00 | disposition home or self-care (01) ==
LOC: H.ER 13:59 → H.ERHOLD 16:59 → H.TEL 20:48
PROVIDERS: ADMIT Family Medicine; ATTEND Family Medicine
DX: R07.9 Chest pain, unspecified (principal); G89.29 Other chronic pain; I11.9 Hypertensive heart disease without heart failure; I25.10 Atherosclerotic heart disease of native coronary artery without angina pectoris; I25.2 Old myocardial infarction; E11.9 Type 2 diabetes mellitus without complications; E78.00 Pure hypercholesterolemia, unspecified; F03.90 Unspecified dementia, unspecified severity, without behavioral disturbance, psychotic disturbance, mood disturbance, and anxiety; M81.0 Age-related osteoporosis without current pathological fracture; D64.9 Anemia, unspecified; D72.829 Elevated white blood cell count, unspecified; H40.9 Unspecified glaucoma; Z86.73 Personal history of transient ischemic attack (TIA), and cerebral infarction without residual deficits; Z96.652 Presence of left artificial knee joint; Z88.6 Allergy status to analgesic agent; Z79.02 Long term (current) use of antithrombotics/antiplatelets; Z79.84 Long term (current) use of oral hypoglycemic drugs
CPT/HCPCS: 36415; 71045; 80048; 82607; 82728; 82747; 82948; 83540; 83550; 83880; 84484; 85025; 93005; 93306; 99285; G0378; J1650

== ENCOUNTER 2018-01-22 13:05 | Emergency (ER) | payer MEDICARE, MEDICAID ==
[2018-01-22 13:05] VITALS: BMI 36.0
[2018-01-22 13:12] VITALS: RESP 16; O2SAT 100
[2018-01-22] MEDS ORDERED: Oxycodone/Acetaminophen 5/325 mg Tab PO ONE (14:13)
[2018-01-22] MEDS ORDERED: Oxycodone/Acetaminophen 5/325 mg Tab ONE (14:21)
--- NOTE | 2018-01-22 14:47 | ED PDOC ---
HPI: Back Time Seen by Provider: 01/22/18 13:25 Chief Complaint (Nursing): Back Pain Chief Complaint (Provider): Back pain History Per: Patient History/Exam Limitations: no limitations Onset/Duration Of Symptoms: Worse Since (few days) Current Symptoms Are (Timing): Still Present Previous Symptoms: Back Pain Associated Symptoms: Other (dysuria and bloody urine) Additional Complaint(s): Claudia Alonso is a 67 year old female, with a past medical history of back problems and diabetes, who presents to the emergency department complaining of a worsening lower back pain that radiates down her right leg associated with dysuria onset for few days. Patient states she has chronic back pain and currently sees Dr. Flor for pain management. However, pain has been worsening for the past few days and today when she went to the bathroom she had a burning sensation and noticed blood in her urine. She denies any fever, chills, nausea, vomit, diarrhea, falls or trauma. No further medical complaints. PMD: Pedro Carreno Past Medical History Reviewed: Historical Data, Nursing Documentation, Vital Signs Vital Signs: Last Vital Signs Temp 98.0 F 01/22/18 13:08 Pulse 113 H 01/22/18 13:08 Resp 16 01/22/18 13:08 BP 94/55 L 01/22/18 13:08 Pulse Ox 100 01/22/18 13:08 - Medical History PMH: Arthritis, Back Problems, CAD, CVA, Dementia, Diabetes, HTN, Hypercholesterolemia, Osteoporosis, Seizures (LAST ATTACK-20 YEARS AGO), TIA Denies: Alzheimer's Disease, Atrial Fibrillation, Cardia Arrhythmia, CHF, Colonic Polyps, Crohn's Disease, Diverticulitis, Fibromyalgia, Fractures, Gastritis, Gall Bladder Disease, HIV, Hyperthyroidism, Hypothyroidism, Migraine , Mitral Valve Prolapse, Multiple Sclerosis, Pancreatitis, Parkinson's Disease, Peripheral Edema, Chronic Kidney Disease, Rheumatoid Arthritis - Surgical History Surgical History: Back Surgery Other surgeries: left knee total replacement, Rt knee, b/l shoulder and left wrist - Family History Family History: States: Unknown Family Hx - Social History Current smoker - smoking cessation education provided: No Alcohol: None Drugs: Denies - Home Medications Home Medications: Ambulatory Orders Medication Instructions Recorded Atorvastatin [Lipitor] 40 mg PO HS 09/18/17 Clopidogrel [Plavix] 75 mg PO DAILY 09/18/17 Diclofenac Sodium [Voltaren] 1 appl TOP Q12 PRN 09/18/17 Lidocaine [Lidocare] 1 patch TD DAILY 09/18/17 Liraglutide [Victoza 2-Eliud] 1.8 mg SC HS 09/18/17 Memantine HCl [Namenda Xr] 28 mg PO DAILY 09/18/17 Pregabalin [Lyrica] 100 mg PO Q12 09/18/17 Rivastigmine [Exelon Cap] 3 mg PO Q12 09/18/17 Travoprost [Travatan Z] 1 drop BOTHEYES HS 09/18/17 Valsartan/Hydrochlorothiazide 1 tab PO DAILY 09/18/17 [Diovan Hct 320-25 mg Tablet] amLODIPine [Norvasc] 5 mg PO DAILY 09/18/17 carBAMazepine [TEGretol-XR] 100 mg PO DAILY 09/18/17 Temazepam [Restoril] 30 mg PO HS 10/15/17 oxyCODONE [oxyCODONE Immediate 30 mg PO Q6 PRN 10/15/17 Release Tab] MetFORMIN [glucoPHAGE] 1,000 mg PO BIDWM #60 tab 10/17/17 SITagliptin [Januvia] 100 mg PO DAILY #30 tab 10/17/17 Ciprofloxacin HCl [Cipro] 500 mg PO BID #14 tab 01/22/18 - Allergies Allergies/Adverse Reactions: Allergies Allergy/AdvReac Type Severity Reaction Status Date / Time aspirin AdvReac NAUSEA Verified 09/18/17 10:15 paper tape Allergy RASH Uncoded 09/18/17 10:15 Review of Systems ROS Statement: Except As Marked, All Systems Reviewed And Found Negative Constitutional: Negative for: Fever, Chills Gastrointestinal: Negative for: Nausea, Vomiting, Diarrhea Genitourinary Female: Positive for: Dysuria, Hematuria Musculoskeletal: Positive for: Back Pain (lower back pain radiates down her right leg) Physical Exam - Reviewed Nursing Documentation Reviewed: Yes Vital Signs Reviewed: Yes - Physical Exam Appears: Positive for: Non-toxic, No Acute Distress Head Exam: Positive for: ATRAUMATIC, NORMAL INSPECTION, NORMOCEPHALIC Skin: Positive for: Normal Color, Warm, Dry Eye Exam: Positive for: Normal appearance, EOMI, PERRL ENT: Positive for: Normal ENT Inspection Neck: Positive for: Painless ROM Cardiovascular/Chest: Positive for: Regular Rate, Rhythm. Negative for: Murmur Respiratory: Positive for: Normal Breath Sounds. Negative for: Respiratory Distress Gastrointestinal/Abdominal: Positive for: Normal Exam, Soft. Negative for: Tenderness Back: Positive for: Normal Inspection. Negative for: L CVA Tenderness, R CVA Tenderness Extremity: Positive for: Normal ROM (upper and lower extremities). Negative for : Deformity, Swelling Neurologic/Psych: Positive for: Alert, Oriented - ECG O2 Sat by Pulse Oximetry: 100 (RA) Pulse Ox Interpretation: Normal Medical Decision Making Medical Decision Making: Time: 13:37 Initial Impression: lower back pain, chronic, with urinary symptoms rule out UTI Initial Plan: --Percocet 5/325 mg tab 1 tab PO --Urine culture --Urinalysis --Reevaluation -Positive UTI. 16:25 Upon provider reevaluation patient is feeling better, sleeping comfortably, is medically stable, and requires no further treatment in the ED at this time. Patient will be discharged home with Rx for Cipro. Counseling was provided and all questions were answered regarding diagnosis and need for follow up with PMD. There is agreement to discharge plan. Return if symptoms persist or worsen. ----- Scribe Attestation: Documented by Tanner Su, acting as a scribe for Mee Reyna MD. Provider Scribe Attestation: All medical record entries made by the Scribe were at my direction and personally dictated by me. I have reviewed the chart and agree that the record accurately reflects my personal performance of the history, physical exam, medical decision making, and the department course for this patient. I have also personally directed, reviewed, and agree with the discharge instructions and disposition. Disposition - Clinical Impression Clinical Impression: UTI (urinary tract infection) - Patient ED Disposition Is Patient to be Admitted: No Counseled Patient/Family Regarding: Studies Performed, Diagnosis, Need For Followup - Disposition Disposition: Routine/Home Disposition Time: 16:15 Condition: IMPROVED Additional Instructions: follow up with your primary doctor in 1-2 days return to the ED with any worsening or concerning symptoms Prescriptions: Ciprofloxacin HCl [Cipro] 500 mg PO BID #14 tab Instructions: Urinary Tract Infection, Adult (DC) Forms: [facility] (German) Print Language: [place]
[2018-01-22 14:58] LABS: SQUAMOUS EPITHIAL 4 /hpf (0-5); URINE BACTERIA RARE (<OCC); URINE BILIRUBIN NEGATIVE (NEGATIVE); URINE BLOOD NEGATIVE (NEGATIVE); URINE CLARITY CLOUDY (Clear); URINE COLOR YELLOW (YELLOW); URINE GLUCOSE (UA) NEG (Normal); URINE LEUKOCYTE ESTERASE LARGE Leu/uL (Negative); URINE PROTEIN NEGATIVE (NEGATIVE); URINE UROBILINOGEN 0.2-1.0 mg/dL (0.2-1.0)
[2018-01-22 16:39] VITALS: BP 145/80; PULSE 75; TEMP 98.1
== END 2018-01-22 16:44 | disposition home or self-care (01) ==
LOC: H.ER 13:05
DX: N39.0 Urinary tract infection, site not specified (principal)

== ENCOUNTER 2018-02-26 09:43 | Day surgery (SDC) | payer MEDICARE, MEDICAID ==
[2018-02-19 10:00] VITALS: BMI 29.0
[2018-02-26 10:17] VITALS: RESP 18
[2018-02-26] MEDS ORDERED: Lidocaine 2% MPF (5 ml) Inj ONE (10:27)
[2018-02-26] MEDS ORDERED: methylPREDNISolone Depo 80 mg/ml Inj ONE (10:27)
[2018-02-26] MEDS ORDERED: Midazolam 2 MG/2 ML VIAL ONE (10:48)
[2018-02-26] MEDS ORDERED: Bupivacaine 0.5% Inj(30mL) IJ ONE (10:58)
[2018-02-26] MEDS ORDERED: Lactated Ringer's 1,000 ML IV ONE (10:59)
[2018-02-26] MEDS ORDERED: Lactated Ringer's 1,000 ML IV SCH (11:45)
[2018-02-26 12:26] VITALS: BP 122/67; PULSE 82; TEMP 97.7; O2SAT 99
--- NOTE | 2018-02-26 21:14 | OP ---
Copied To: Luiz Balbuena MD Attending MD: Luiz Balbuena MD PROCEDURE DATE: 02/26/2018 PREOPERATIVE DIAGNOSIS: Failed back syndrome. POSTOPERATIVE DIAGNOSIS: Failed back syndrome. PROCEDURE: Right L2, L3, and L4 medial branch nerve radiofrequency. SURGEON: Luiz Balbuena MD ANESTHESIOLOGIST: Winston Beaulieu MD TYPE OF ANESTHESIA: Monitored anesthesia care. COMPLICATIONS: None. SPECIMEN: None. DESCRIPTION OF PROCEDURE: As follows: After re-discussion of the procedure with the patient including its risks, benefits, alternatives, outcome data, possibility of no effect or increased pain, the patient consented to the procedure. She denied any recent infection, bleeding tendencies, or being on anticoagulants; a decision was then made to proceed to the OR. She has stopped Plavix for seven days prior to today. The patient was placed on a fluoroscopy table in a prone position with two pillows underneath her abdomen. The back was prepped and draped in the usual sterile fashion and sterile technique was adhered during the entire procedure. The patient was then grounded for the purpose of radiofrequency. The L2, L3, and L4 medial branch nerves were located at the superior articular process and the transverse process junction of the L2, L3, and L4 pedicles. The three targeted areas were visualized on the right side by turning the fluoroscopy towards the right at approximately 15 degrees. A 22-gauge needle was then incrementally advanced under fluoroscopic guidance until the tip of needle made bony contact with the targeted areas. After satisfactory positioning of all three needles, sensorimotor testing was carried out to satisfactory results. Then, each nerve was anesthetized with 1% lidocaine. Radiofrequency was then carried out at 80 degree Celsius for approximately 90 seconds. The needle was then turned 90 degrees and radiofrequency was carried out one more time. At the end of the procedure, each nerve was treated with a combination of 0.5% Marcaine and Depo-Medrol. The needle was then removed and the patient's back was cleaned and dried bandages were applied. The patient was then transferred to the recovery area in good condition without any signs of BROADCAST JOURNALIST toxicity or any neurological deficit. She will be following in the office in approximately two to four weeks. Luiz Balbuena MD
--- NOTE | 2018-02-28 17:02 | RAD ---
Date of service: 02/26/2018 PROCEDURE: Intraoperative fluoroscopy HISTORY: PAIN MANAGEMENT COMPARISON: Not available TECHNIQUE: Intraoperative fluoroscopy was provided for an interventional pain management procedure. Total time of fluoroscopy was 25.3 seconds. The cumulative dose was 7.83 mGy. FINDINGS: A single fluoroscopic spot film is submitted. IMPRESSION: Fluoroscopy provided.
== END 2018-02-26 13:00 | disposition home or self-care (01) ==
LOC: H.OPSURG 09:43
PROVIDERS: ATTEND Anesthesiology
DX: M47.816 Spondylosis without myelopathy or radiculopathy, lumbar region (principal); I25.10 Atherosclerotic heart disease of native coronary artery without angina pectoris; K21.9 Gastro-esophageal reflux disease without esophagitis; I10 Essential (primary) hypertension; G40.909 Epilepsy, unspecified, not intractable, without status epilepticus

== ENCOUNTER 2018-08-13 09:54 | Day surgery (SDC) | payer MEDICARE, MEDICAID ==
[2018-08-13 10:42] VITALS: BMI 30.5
--- NOTE | 2018-08-13 11:33 | CP.SDSHP ---
Same Day Surgery H & P - History Proposed Procedure: Lumbar medial branch nerve blocks Pre-Op Diagnosis: Failed back syndrome - Allergies Allergies: Allergies aspirin Adverse Reaction (Verified 08/13/18 10:42) NAUSEA paper tape Allergy (Uncoded 08/13/18 10:42) RASH - Physical Exam Vital Signs: Vital Signs 08/13/18 08/13/18 10:31 10:36 Temperature 98 F Pulse Rate 77 77 Respiratory 20 Rate Blood Pressure 135/67 O2 Sat by Pulse 96 Oximetry Neuro: WNL Heart: WNL Lungs: WNL - Impression Impression: Failed back syndrome Pt. Evaluated Today:Candidate for Anesthesia & Procedure: Yes Short Stay Discharge - Short Stay Discharge Admitting Diagnosis/Reason for Visit: M96.1 Disposition: HOME/ ROUTINE Referrals: Pedro Hollins MD [Primary Care Provider] -
[2018-08-13] MEDS ORDERED: MethylPREDNISolone Depo 40 mg/ml Inj ONE (11:35)
[2018-08-13] MEDS ORDERED: Bupivacaine 0.5% Inj(30mL) ONE (11:36)
[2018-08-13] MEDS ORDERED: Iohexol 300 10 ML ONE (11:36)
[2018-08-13] MEDS ORDERED: Propofol 10 mg/ml Inj (20 ML) ONE (11:38)
[2018-08-13] MEDS ORDERED: Midazolam 2 MG/2 ML VIAL ONE (11:38)
[2018-08-13] MEDS ORDERED: Lidocaine 2% Inj (20ml) ONE (11:39)
[2018-08-13] MEDS ORDERED: Lactated Ringer's 1,000 ML IV ONE (11:59)
[2018-08-13] MEDS ORDERED: HYDROmorphone 0.5 mg/0.5 ml ISec IVP PRN (12:04)
[2018-08-13 13:35] VITALS: RESP 18; O2SAT 98
[2018-08-13 14:33] VITALS: BP 113/52; PULSE 78; TEMP 98.4
--- NOTE | 2018-08-13 19:53 | OP ---
PROCEDURE DATE: 08/13/2018 PREOPERATIVE DIAGNOSIS: Lumbar spondylosis. POSTOPERATIVE DIAGNOSIS: Lumbar spondylosis. PROCEDURE: Bilateral L2, L3, and L4 medial branch nerve block. SURGEON: Luiz Balbuena MD ANESTHESIA TYPE: Monitored anesthesia care. ANESTHESIOLOGIST: Dr. Wilks COMPLICATIONS: None. SPECIMEN: None. DESCRIPTION OF PROCEDURE: Procedure is as follows: After we had discussion of the procedure with the patient including its risks, benefits, alternatives, outcome data, possibility of no effect or increased pain, the patient consented to do the procedure. She denied any recent infection, bleeding tendencies or being on anticoagulants. A decision was then made to proceed to the OR. The patient had stopped Plavix approximately one week ago. The patient was placed on the fluoroscopy table in a prone position with 2 pillows underneath her abdomen. The back was prepped and draped in the usual sterile fashion. A sterile technique was adhered to during the entire procedure. The L2, L3, and L4 vertebral bodies were then identified on the anteroposterior view. The medial branch nerves are located at the intersection of the superior articular process and the transverse process. The procedure was first performed on the left by turning the fluoroscopy towards the left at approximately 15 degrees. The skin overlying the three above target areas was then infiltrated with 1% lidocaine using 25-gauge needle. Subsequently, a 22-gauge 3.5-inch spinal needle was then incrementally advanced under fluoroscopic guidance until tip of the needle made bony contact with all three target areas. After satisfactory position of all three needles, approximately 3 mL of 0.5% Marcaine and Depo-Medrol mixture was injected. The needle was then removed and the exact same procedure was performed on the contralateral right side using the same medications and techniques. At the end of the case, the patient's back was cleaned and a dry bandage was applied. The patient was then transferred to the recovery area in good condition without any signs of CALENDER MACHINE OPERATOR toxicity or any neurological deficit. She will be following in the office in approximately two to four weeks. Luiz Balbuena MD
--- NOTE | 2018-08-14 16:55 | RAD ---
Date of service: 08/13/2018 PROCEDURE: Fluoroscopy up to 1 hr. HISTORY: PAIN MANAGEMENT COMPARISON: None TECHNIQUE: Standard protocol for this study/examination. FINDINGS: Total fluoroscopic time (continuous mode) utilized during the procedure 20.1 seconds. 6.55 IMPRESSION: Less than 1 hr fluoroscopic assistance provided during performance of the procedure.
== END 2018-08-13 14:00 | disposition home or self-care (01) ==
LOC: H.OPSURG 09:54
PROVIDERS: ATTEND Anesthesiology
DX: M47.816 Spondylosis without myelopathy or radiculopathy, lumbar region (principal); I25.10 Atherosclerotic heart disease of native coronary artery without angina pectoris; E78.5 Hyperlipidemia, unspecified; I10 Essential (primary) hypertension; K21.9 Gastro-esophageal reflux disease without esophagitis; E11.9 Type 2 diabetes mellitus without complications
CPT/HCPCS: 64493; 64494; 82948; J1030; J2250; J2704; J3010; J7120

== ENCOUNTER 2018-09-19 06:46 | Day surgery (SDC) | payer MEDICARE, MEDICAID ==
[2018-09-19 07:09] VITALS: RESP 18
[2018-09-19 07:19] VITALS: BMI 26.6
[2018-09-19] MEDS ORDERED: methylPREDNISolone Depo 80 mg/ml Inj ONE (07:44)
--- NOTE | 2018-09-19 07:47 | CP.SDSHP ---
Same Day Surgery H & P - History Proposed Procedure: Lumbar medial branch nerve radiofrequency Pre-Op Diagnosis: Failed back syndrome - Previous Medical/Surgical History Cardiac: Hypertension, ASHD/CAD Pain: 8.Very Severe - Allergies Allergies: Allergies aspirin Adverse Reaction (Verified 09/19/18 07:19) NAUSEA paper tape Allergy (Uncoded 09/19/18 07:19) RASH - Physical Exam Vital Signs: Vital Signs 09/19/18 09/19/18 07:07 07:13 Temperature 98.4 F Pulse Rate 73 73 Respiratory 18 Rate Blood Pressure 111/62 O2 Sat by Pulse 97 Oximetry Mental Status: Alert & Oriented x3 Neuro: WNL Heart: WNL Lungs: WNL GI: WNL - Impression Impression: Failed back syndrome Pt. Evaluated Today:Candidate for Anesthesia & Procedure: Yes Short Stay Discharge - Short Stay Discharge Admitting Diagnosis/Reason for Visit: M96.1 Disposition: HOME/ ROUTINE Referrals: Pedro Hollins MD [Primary Care Provider] -
[2018-09-19] MEDS ORDERED: Midazolam 2 MG/2 ML VIAL ONE ×2 (08:49→09:02)
[2018-09-19] MEDS ORDERED: Lactated Ringer's 1,000 ML IV ONE (08:55)
[2018-09-19] MEDS ORDERED: Lidocaine 1% Inj (20ml) IJ ONE (09:00)
[2018-09-19] MEDS ORDERED: methylPREDNISolone Depo 80 mg/ml Inj IM ONE (09:08)
[2018-09-19] MEDS ORDERED: Bupivacaine HCl 0.5% PF (10 ml) Inj IJ ONE (09:08)
[2018-09-19] MEDS ORDERED: HYDROmorphone 0.5 mg/0.5 ml ISec IVP PRN (09:31)
[2018-09-19] MEDS ORDERED: Lactated Ringer's 1,000 ML IV SCH (09:45)
[2018-09-19 10:40] VITALS: O2SAT 100
[2018-09-19 11:27] VITALS: BP 129/70; PULSE 80; TEMP 98.4
--- NOTE | 2018-09-19 12:40 | RAD ---
Date of service: 09/19/2018 PROCEDURE: Fluoroscopy up to 1 hr. HISTORY: PAIN MANAGEMENT COMPARISON: None TECHNIQUE: Submitted images from the current procedure: 2.0 FINDINGS: Total fluoroscopic time (continuous mode) utilized during the procedure 26.9 seconds. IMPRESSION: Total exam DLP: 11.35 (mGy).
--- NOTE | 2018-09-22 17:02 | OP ---
PROCEDURE DATE: 09/19/2018 PREOPERATIVE DIAGNOSIS: Failed back syndrome. POSTOPERATIVE DIAGNOSIS: Failed back syndrome. PROCEDURE: Bilateral L3 and L4 medial branch nerve blocks and radiofrequency. ANESTHESIOLOGIST: Allison Schafer MD. SURGEON: Luiz Balbuena MD TYPE OF ANESTHESIA: Monitored anesthesia care. COMPLICATIONS: None. SPECIMEN: None. DESCRIPTION OF PROCEDURE: Procedure is as follows: After we had a discussion of the procedure, decision was then made to proceed to the OR. She denied any recent infection, bleeding tendencies, or being on anticoagulants. She had stopped her Plavix approximately one week prior to today. The patient was then brought into the OR, placed in a prone position on to the fluoroscopy table. The back was prepped and draped in the usual sterile fashion. A sterile technique was adhered to during the entire procedure. The patient was then grounded. The L3 and L4 medial branch nerves are located at the superior articular process and transverse process junction of the L3 and L4 pedicles. The procedure was first performed on the right side by turning the fluoroscopy towards the right at approximately 15 degrees. Then the skin overlying the two target area was then infiltrated with 1% lidocaine using 25-gauge needle. Then a 22-gauge needle was then incrementally advanced under fluoroscopic guidance until tip of the needle made bony contact with the targets. After satisfactory positioning of both needles, sensory motor testing was carried out with satisfactory results. Then each nerve was anesthetized with 1% lidocaine. Radiofrequency was then carried out at 80 degrees Celsius for approximately one and half minutes. At the end of the procedure, each nerve was treated with a combination of 0.5% Marcaine and Depo-Medrol. The needle was then removed and the same exact procedure was performed on the contralateral left side using the same medications and technique at the same levels. At the end of the case, the patient's back was cleaned and dry bandages were applied. The patient was then transferred to recovery area in good condition without any signs of WEB CONTENT MANAGER toxicity or any neurological deficit. She will follow up in office in approximately two to four weeks. Luiz Balbuena MD [facility] # [id number]
== END 2018-09-19 11:29 | disposition home or self-care (01) ==
LOC: H.OPSURG 06:46
PROVIDERS: ATTEND Anesthesiology
DX: M96.1 Postlaminectomy syndrome, not elsewhere classified (principal); E11.9 Type 2 diabetes mellitus without complications; I10 Essential (primary) hypertension; I25.10 Atherosclerotic heart disease of native coronary artery without angina pectoris; Z88.6 Allergy status to analgesic agent
CPT/HCPCS: 62321; 82948; J1040; J2250; J3010; J7120